=== PATIENT | male | born 1985 | race African-American/Black ===

== ENCOUNTER 2021-03-30 14:38 | Observation (INO) | payer OTHER ==
[2021-03-30] MEDS ORDERED: ASPIRIN 81 MG PO STA (14:48)
[2021-03-30] MEDS ORDERED: NITROGLYCERIN SL TABS 0.4 MG TAB SUBLINGUAL STA (14:48)
[2021-03-30 15:16] LABS: Basophils # (A) 0.1 k/uL (0-0.2); Basophils % (A) 1 %; Eosinophils # (A) 0.2 k/uL (0-0.7); Eosinophils % (A) 4 %; HCT 47.4 % (39.0-53.0); Lymphocytes # (A) 1.9 k/uL (1.0-4.8); Lymphocytes % (A) 42 %; MCH 30.9 pg (25.0-35.0); MCHC 33.7 g/dL (31.0-37.0); MCV 91.8 fL (80.0-100.0); Mean Platelet Volume 8.4; Monocytes # (A) 0.5 k/uL (0-1.0); Monocytes % (A) 10 %; Neutrophils # (A) 1.8 k/uL (1.3-7.7); Neutrophils % (A) 41 %; Platelet Count 173 k/uL (150-450); RBC 5.16 m/uL (4.30-5.90); RDW 12.2 % (11.5-15.5); WBC 4.4 k/uL (3.8-10.6)
[2021-03-30 15:25] LABS: ALT 55 U/L (4-49); AST 46 U/L (17-59); African American GFR (CKD) >90 (>60 ml/min/1.73 sqM); Albumin 4.4 g/dL (3.5-5.0); Alkaline Phosphatase 78 U/L (38-126); Anion Gap 7 mmol/L; Blood Urea Nitrogen 16 mg/dL (9-20); Calcium 9.5 mg/dL (8.4-10.2); Carbon Dioxide 25 mmol/L (22-30); Chloride 105 mmol/L (98-107); Glucose 96 mg/dL (74-99); Magnesium 1.9 mg/dL (1.6-2.3); Non-African American GFR(CKD) >90 (>60 ml/min/1.73 sqM); Potassium 4.5 mmol/L (3.5-5.1); Sodium 137 mmol/L (137-145); Total Bilirubin 0.5 mg/dL (0.2-1.3); Total Protein 7.7 g/dL (6.3-8.2)
--- NOTE | 2021-03-30 15:29 | ED ---
General Adult HPI - General Chief complaint: Chest Pain Stated complaint: Chest pain Time Seen by Provider: 03/30/21 14:41 Source: patient, EMS, RN notes reviewed Mode of arrival: EMS Limitations: no limitations - History of Present Illness Initial comments: Patient is a pleasant 35-year-old male presenting to the emergency department with complaints of chest discomfort. Onset of symptoms was prior to arrival while at rest. Discomfort is sharp without radiation. Patient does have some mild associated dyspnea. No nausea or diaphoresis. No history of similar symptoms previously. 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 Patient does have pacemaker/defibrillator discomfort is moderate to severe. Discomfort has been persistent. Patient comes from [place] where he is they're secondary to history of heroin use. - Related Data Allergies Allergy/AdvReac Type Severity Reaction Status Date / Time No Known Allergies Allergy Verified 03/30/21 14:40 Review of Systems ROS Statement: Those systems with pertinent positive or pertinent negative responses have been documented in the HPI. ROS Other: All systems not noted in ROS Statement are negative. Constitutional: Denies: fever Eyes: Denies: eye pain ENT: Denies: ear pain Respiratory: Denies: cough Cardiovascular: Reports: as per HPI, chest pain Endocrine: Denies: fatigue Gastrointestinal: Denies: abdominal pain Genitourinary: Denies: dysuria Musculoskeletal: Denies: back pain Skin: Denies: rash Neurological: Denies: weakness Past Medical History Past Medical History: Diabetes Mellitus, Hypertension Additional Past Medical History / Comment(s): tetralogy of fallot as History of Any Multi-Drug Resistant Organisms: None Reported Past Surgical History: Cardiac Valve Replacement, Pacemaker Additional Past Surgical History / Comment(s): Pacemaker/defib, 4 heart valve replacements Past Psychological History: No Psychological Hx Reported Smoking Status: Current every day smoker Past Alcohol Use History: None Reported Past Drug Use History: Heroin, Opiates General Exam Limitations: no limitations General appearance: alert, in no apparent distress Head exam: Present: normocephalic Eye exam: Present: normal appearance Neck exam: Present: normal inspection Respiratory exam: Present: normal lung sounds bilaterally Cardiovascular Exam: Present: regular rate, normal rhythm, systolic murmur, diastolic murmur Expanded Peripheral pulses: 2+: Radial (R), Radial (L), Dorsalis Pedis (R), Dorsalis Pedis (L) GI/Abdominal exam: Present: soft. Absent: tenderness Extremities exam: Present: normal inspection. Absent: pedal edema, calf tenderness Neurological exam: Present: alert Psychiatric exam: Present: normal affect, normal mood Skin exam: Present: normal color Course Vital Signs 03/30/21 03/30/21 14:41 15:27 Temperature 98 F Pulse Rate 57 L 55 L Respiratory 18 16 Rate Blood Pressure 138/88 128/81 O2 Sat by Pulse 98 100 Oximetry EKG Findings - EKG Comments: EKG Findings:: Sinus bradycardia with rate of 198. QRS 164. QT 442. QTC 419. Right bundle branch block. Superior axis. Inferior T wave inversion. Medical Decision Making - Medical Decision Making Patient reevaluated and is feeling better. Patient resting comfortably in bed. Patient updated on results and plan. Case discussed with Dr. ag, who will admit covering hospital call. - Lab Data Result diagrams: 03/30/21 14:58 03/30/21 14:58 Lab Results 03/30/21 03/30/21 03/30/21 Range/Units 14:58 14:58 14:58 WBC 4.4 (3.8-10.6) k/uL RBC 5.16 (4.30-5.90) m/uL Hgb 16.0 (13.0-17.5) gm/dL Hct 47.4 (39.0-53.0) % MCV 91.8 (80.0-100.0) fL MCH 30.9 (25.0-35.0) pg MCHC 33.7 (31.0-37.0) g/dL RDW 12.2 (11.5-15.5) % Plt Count 173 (150-450) k/uL MPV 8.4 Neutrophils % 41 % Lymphocytes % 42 % Monocytes % 10 % Eosinophils % 4 % Basophils % 1 % Neutrophils # 1.8 (1.3-7.7) k/uL Lymphocytes # 1.9 (1.0-4.8) k/uL Monocytes # 0.5 (0-1.0) k/uL Eosinophils # 0.2 (0-0.7) k/uL Basophils # 0.1 (0-0.2) k/uL PT 11.4 (9.0-12.0) sec INR 1.1 (<1.2) APTT 28.5 (22.0-30.0) sec D-Dimer 0.45 (<0.60) mg/L FEU Sodium 137 (137-145) mmol/L Potassium 4.5 (3.5-5.1) mmol/L Chloride 105 (98-107) mmol/L Carbon Dioxide 25 (22-30) mmol/L Anion Gap 7 mmol/L BUN 16 (9-20) mg/dL Creatinine 0.75 (0.66-1.25) mg/dL Est GFR (CKD-EPI)AfAm >90 (>60 ml/min/1.73 sqM) Est GFR (CKD-EPI)NonAf >90 (>60 ml/min/1.73 sqM) Glucose 96 (74-99) mg/dL Calcium 9.5 (8.4-10.2) mg/dL Magnesium 1.9 (1.6-2.3) mg/dL Total Bilirubin 0.5 (0.2-1.3) mg/dL AST 46 (17-59) U/L ALT 55 H (4-49) U/L Alkaline Phosphatase 78 (38-126) U/L Troponin I (0.000-0.034) ng/mL Total Protein 7.7 (6.3-8.2) g/dL Albumin 4.4 (3.5-5.0) g/dL 03/30/21 Range/Units 14:58 WBC (3.8-10.6) k/uL RBC (4.30-5.90) m/uL Hgb (13.0-17.5) gm/dL Hct (39.0-53.0) % MCV (80.0-100.0) fL MCH (25.0-35.0) pg MCHC (31.0-37.0) g/dL RDW (11.5-15.5) % Plt Count (150-450) k/uL MPV Neutrophils % % Lymphocytes % % Monocytes % % Eosinophils % % Basophils % % Neutrophils # (1.3-7.7) k/uL Lymphocytes # (1.0-4.8) k/uL Monocytes # (0-1.0) k/uL Eosinophils # (0-0.7) k/uL Basophils # (0-0.2) k/uL PT (9.0-12.0) sec INR (<1.2) APTT (22.0-30.0) sec D-Dimer (<0.60) mg/L FEU Sodium (137-145) mmol/L Potassium (3.5-5.1) mmol/L Chloride (98-107) mmol/L Carbon Dioxide (22-30) mmol/L Anion Gap mmol/L BUN (9-20) mg/dL Creatinine (0.66-1.25) mg/dL Est GFR (CKD-EPI)AfAm (>60 ml/min/1.73 sqM) Est GFR (CKD-EPI)NonAf (>60 ml/min/1.73 sqM) Glucose (74-99) mg/dL Calcium (8.4-10.2) mg/dL Magnesium (1.6-2.3) mg/dL Total Bilirubin (0.2-1.3) mg/dL AST (17-59) U/L ALT (4-49) U/L Alkaline Phosphatase (38-126) U/L Troponin I <0.012 (0.000-0.034) ng/mL Total Protein (6.3-8.2) g/dL Albumin (3.5-5.0) g/dL - Radiology Data Radiology results: image reviewed (Chest x-ray shows chronic changes without acute abnormality.) Disposition Clinical Impression: Chest pain Disposition: ADMITTED IP TO THIS [facility] Is patient prescribed a controlled substance at d/c from ED?: No Referrals: None,Stated [Primary Care Provider] - 1-2 days Decision Time: 16:28
--- NOTE | 2021-03-30 15:44 | XR ---
EXAMINATION TYPE: XR chest 2V DATE OF EXAM: 03/30/2021 COMPARISON: NONE HISTORY: Chest pain TECHNIQUE: 2 view FINDINGS: There is left axillary pacemaker. There are sternal wires. There is apparent right-sided ao rtic arch. Heart size is normal. There is cardiac valve surgery. There is no pleural effusion. There are no hilar masses. Bony thorax is intact. The lungs are clear of infiltrate. IMPRESSION: No active cardiopulmonary disease.
[2021-03-30 16:05] LABS: INR 1.1 (<1.2); Partial Thromboplastin Time 28.5 sec (22.0-30.0); Prothrombin Time 11.4 sec (9.0-12.0)
[2021-03-30] MEDS ORDERED: NITROGLYCERIN SL TABS 0.4 MG TAB SUBLINGUAL PRN (16:29)
[2021-03-30] MEDS ORDERED: ONDANSETRON 4 MG/2 ML VIAL IVP PRN (16:56)
[2021-03-30] MEDS ORDERED: MAG HYDROX/AL HYDROX/SIMETH 30 ML CUP PO PRN (16:56)
[2021-03-30] MEDS ORDERED: NALOXONE 0.4 MG/ML 1 ML VIAL IV PRN (16:56)
[2021-03-30] MEDS ORDERED: ACETAMINOPHEN TAB 325 MG TAB PO PRN (16:56)
[2021-03-30] MEDS ORDERED: LOPERAMIDE 2 MG CAP PO PRN (16:56)
--- NOTE | 2021-03-30 17:00 | P.HPIM ---
History of Present Illness H&P Date: 03/30/21 This is a 35-year-old male with past medical history of tetralogy of fall with status post open heart surgery also defibrillator placement the patient was admitted to the hospital with chest pain substernal that currently resolved Review of systems and systems has been reviewed all negative and positive findings as per history of present illness the patient states that he does have chest pains are not FROM time to time Constitutional: No acute distress, conversant, pleasant Eyes: Anicteric sclerae, moist conjunctiva, no lid-lag PERRLA ENMT: NC/AT Oropharynx clear, no erythema, exudates Neck: Supple, FROM, no masses, or JVD No carotid bruits No thyromegaly Lungs: Clear to auscultation Clear to percussion Normal respiratory effort, no accessory muscle use Cardiovascular: Heart regular in rate and rhythm, No murmurs, gallops, or rubs No peripheral edema Abdominal: Soft Nontender, no guarding, rebound or rigidity Abdomen moving with respiration Normoactive bowel sounds No hepatomegaly, No splenomegaly No palpable mass No abdominal wall hernia noted Skin: Normal temperature, tone, texture, turgor No induration No subcutaneous nodules No rash, lesions No ulcers Extremities: No digital cyanosis No clubbing Pedal pulses intact and symmetrical Radial pulses intact and symmetrical Normal gait and station No calf tenderness Psychiatric:Alert and oriented to person, place and time Appropriate affect Intact judgement Neuro: Muscles Strength 5/5 in all 4 extremities Sensation to light touch grossly present throughout Cranial nerves II-XII grossly intact No focal sensory deficits Assessment and plan Chest pain with typical and atypical features cardiology has been consulted will observe overnight History of tetralogy of followed status post open heart surgery Status post defibrillator placement Observe overnight Past Medical History Past Medical History: Diabetes Mellitus, Hypertension Additional Past Medical History / Comment(s): tetralogy of fallot as History of Any Multi-Drug Resistant Organisms: None Reported Past Surgical History: Cardiac Valve Replacement, Pacemaker Additional Past Surgical History / Comment(s): Pacemaker/defib, 4 heart valve replacements Past Psychological History: No Psychological Hx Reported Smoking Status: Current every day smoker Past Alcohol Use History: None Reported Past Drug Use History: Heroin, Opiates Medications and Allergies Allergies Allergy/AdvReac Type Severity Reaction Status Date / Time No Known Allergies Allergy Verified 03/30/21 14:40 Physical Exam Vitals: Vital Signs Temp Pulse Resp BP Pulse Ox 03/30/21 16:53 54 L 16 149/85 100 03/30/21 15:27 55 L 16 128/81 100 03/30/21 14:41 98 F 57 L 18 138/88 98 Intake and Output 03/30/21 03/30/21 03/30/21 06:59 14:59 22:59 Other: Weight 81.647 kg Results CBC & Chem 7: 03/30/21 14:58 03/30/21 14:58 Labs: Abnormal Lab Results - Last 24 Hours (Table) 03/30/21 Range/Units 14:58 ALT 55 H (4-49) U/L
[2021-03-30 20:28] LABS: Glucose,Whole Blood 135 mg/dL (75-99)
[2021-03-31 08:12] LABS: Glucose,Whole Blood 85 mg/dL (75-99)
[2021-03-31 08:40] VITALS: BP 115/74; PULSE 51; RESP 18; TEMP 97.6
[2021-03-31] MEDS ORDERED: ASPIRIN 325 MG TAB PO SCH (09:00)
--- NOTE | 2021-03-31 11:18 | P.DS ---
Providers Date of admission: 03/30/21 16:29 Expected date of discharge: 03/31/21 Attending physician: Blair Tang MD Consults: 03/30/21 16:29 Consult Physician Urgent Consulting Provider: Raza Carroll Consult Reason/Comments: cp, H/O Tetrology of fallot Do you want consulting provider notified?: Yes Primary care physician: Stated None Hospital Course: 35-year-old male admitted to the hospital with chest pain the patient does have a history of tetralogy followed status post open heart surgery admitted to the hospital chest pain chest pain resolved patient was cleared from cardiology To be discharged Constitutional: No acute distress, conversant, pleasant Eyes: Anicteric sclerae, moist conjunctiva, no lid-lag PERRLA ENMT: NC/AT Oropharynx clear, no erythema, exudates Neck: Supple, FROM, no masses, or JVD No carotid bruits No thyromegaly Lungs: Clear to auscultation Clear to percussion Normal respiratory effort, no accessory muscle use Cardiovascular: Heart regular in rate and rhythm, No murmurs, gallops, or rubs No peripheral edema Abdominal: Soft Nontender, no guarding, rebound or rigidity Abdomen moving with respiration Normoactive bowel sounds No hepatomegaly, No splenomegaly No palpable mass No abdominal wall hernia noted Skin: Normal temperature, tone, texture, turgor No induration No subcutaneous nodules No rash, lesions No ulcers Extremities: No digital cyanosis No clubbing Pedal pulses intact and symmetrical Radial pulses intact and symmetrical Normal gait and station No calf tenderness Psychiatric:Alert and oriented to person, place and time Appropriate affect Intact judgement Neuro: Muscles Strength 5/5 in all 4 extremities Sensation to light touch grossly present throughout Cranial nerves II-XII grossly intact No focal sensory deficits Discharge diagnosis chest pain resolved follow-up with cardiology and primary care physician No evidence for acute coronary syndrome or PE Patient Condition at Discharge: Stable Plan - Discharge Summary Discharge Rx Participant: No New Discharge Prescriptions: New Aspirin 325 mg PO DAILY 30 Days #30 tab Continue Chlorpheniramine Maleate [Chlor-Trimeton] 4 mg PO Q4H PRN PRN Reason: Allergy Symptoms ondansetron HCL [Zofran] 8 mg PO Q6H PRN PRN Reason: Nausea Loperamide HCl [Imodium A-D] 4 mg PO DIRECTED PRN PRN Reason: Loose Stool Calc/M,Ag/Zinc/Vitamin D 1 tab PO TID cloNIDine HCL [Catapres] 0.1 mg PO Q4H PRN PRN Reason: Blood Pressure - High Ibuprofen [Motrin Ib] 600 mg PO Q8H PRN PRN Reason: Pain Metoprolol Tartrate [Lopressor] 50 mg PO BID@0600,1800 Hyoscyamine Sulfate [Levsin] 0.125 mg PO QID PRN PRN Reason: CRAMPS Discharge Medication List Calc/M,Ag/Zinc/Vitamin D 1 tab PO TID 03/30/21 [History] Chlorpheniramine Maleate [Chlor-Trimeton] 4 mg PO Q4H PRN 03/30/21 [History] Hyoscyamine Sulfate [Levsin] 0.125 mg PO QID PRN 03/30/21 [History] Ibuprofen [Motrin Ib] 600 mg PO Q8H PRN 03/30/21 [History] Loperamide HCl [Imodium A-D] 4 mg PO DIRECTED PRN 03/30/21 [History] Metoprolol Tartrate [Lopressor] 50 mg PO BID@0600,1800 03/30/21 [History] cloNIDine HCL [Catapres] 0.1 mg PO Q4H PRN 03/30/21 [History] ondansetron HCL [Zofran] 8 mg PO Q6H PRN 03/30/21 [History] Aspirin 325 mg PO DAILY 30 Days #30 tab 03/31/21 [Rx] Follow up Appointment(s)/Referral(s): None,Stated [Primary Care Provider] - 1-2 days Discharge Disposition: HOME SELF-CARE
--- NOTE | 2021-03-31 11:28 | P.CRDCN ---
History of Present Illness Consult date: 03/31/21 Chief complaint: Chest pain History of present illness: The patient is a 35-year-old gentleman with a past medical history significant for history of tetralogy of Fallout and status post multiple surgeries as well as history of ICD placement as well as multiple comorbid conditions, the patient follows regularly at the [facility] at the adult congenital heart disease, was admitted to the hospital with a chest discomfort. The patient described her discomfort as sharp in the middle of the chest without any radiation and without any associated symptoms. Her shortness of breath and no dizziness or lightheadedness and no presyncope or syncope. Discomfort lasts only for a few seconds. Currently he is chest pain-free. He underwent a blood work including cardiac enzymes came in to be unremarkable and EKG showing sinus rhythm with RBBB. His physical examination is consistent with systolic and diastolic murmur at the right upper sternal border. The patient was seen and evaluated this morning and he is chest pain-free. He would like to go home and follow with his hunter trapper at the [facility]. He stated that he is scheduled to undergo a heart catheterization over there. We'll get the patient up and around and she is asymptomatic she definitely can be discharged home to see his hunter trapper where he follows at an adult congenital heart disease program at the [facility]. Past Medical History Past Medical History: Diabetes Mellitus, Hypertension Additional Past Medical History / Comment(s): tetralogy of fallot as infant History of Any Multi-Drug Resistant Organisms: None Reported Past Surgical History: Cardiac Valve Replacement, Pacemaker Additional Past Surgical History / Comment(s): Pacemaker/defib, 4 heart valve replacements Type of Cardiac Device: Permanent Pacemaker Device Placement Date:: 2019 Past Psychological History: No Psychological Hx Reported Smoking Status: Current every day smoker Past Alcohol Use History: None Reported Past Drug Use History: Heroin, Opiates Medications and Allergies Home Medications Medication Instructions Recorded Confirmed Type Calc/M,Ag/Zinc/Vitamin D 1 tab PO TID 03/30/21 03/30/21 History Chlorpheniramine Maleate 4 mg PO Q4H PRN 03/30/21 03/30/21 History [Chlor-Trimeton] Hyoscyamine Sulfate [Levsin] 0.125 mg PO QID PRN 03/30/21 03/30/21 History Ibuprofen [Motrin Ib] 600 mg PO Q8H PRN 03/30/21 03/30/21 History Loperamide HCl [Imodium A-D] 4 mg PO DIRECTED PRN 03/30/21 03/30/21 History Metoprolol Tartrate [Lopressor] 50 mg PO BID@0600,1800 03/30/21 03/30/21 History cloNIDine HCL [Catapres] 0.1 mg PO Q4H PRN 03/30/21 03/30/21 History ondansetron HCL [Zofran] 8 mg PO Q6H PRN 03/30/21 03/30/21 History Aspirin 325 mg PO DAILY 30 Days #30 tab 03/31/21 Rx Allergies Allergy/AdvReac Type Severity Reaction Status Date / Time No Known Allergies Allergy Verified 03/30/21 18:09 Physical Exam Vitals: Vital Signs Temp Pulse Pulse Resp BP BP BP 03/31/21 07:00 97.6 F 51 L 18 115/74 03/31/21 02:20 98.1 F 52 L 20 139/84 03/30/21 19:19 99.0 F 51 L 22 124/66 03/30/21 18:13 55 L 16 110/70 03/30/21 16:53 54 L 16 149/85 03/30/21 15:27 55 L 16 128/81 03/30/21 14:41 98 F 57 L 18 138/88 Pulse Ox 03/31/21 07:00 99 03/31/21 02:20 100 03/30/21 19:19 100 03/30/21 18:13 100 03/30/21 16:53 100 03/30/21 15:27 100 03/30/21 14:41 98 Intake and Output 03/30/21 03/31/21 03/31/21 22:59 06:59 14:59 Intake Total 120 Balance 120 Intake: Oral 120 Other: Voiding Method Toilet Toilet # Voids 1 1 Weight 81.647 kg - Constitutional General appearance: no acute distress - Respiratory Respiratory: bilateral: CTA - Cardiovascular Rhythm: regular Heart sounds: normal: S1, S2 Abnormal Heart Sounds: systolic murmur, diastolic murmur Results 03/30/21 14:58 03/30/21 14:58 Cardiac Enzymes 03/30/21 03/30/21 03/30/21 Range/Units 14:58 14:58 18:25 AST 46 (17-59) U/L Troponin I <0.012 <0.012 (0.000-0.034) ng/mL 03/30/21 Range/Units 21:00 AST (17-59) U/L Troponin I <0.012 (0.000-0.034) ng/mL Coagulation 03/30/21 Range/Units 14:58 PT 11.4 (9.0-12.0) sec APTT 28.5 (22.0-30.0) sec CBC 03/30/21 Range/Units 14:58 WBC 4.4 (3.8-10.6) k/uL RBC 5.16 (4.30-5.90) m/uL Hgb 16.0 (13.0-17.5) gm/dL Hct 47.4 (39.0-53.0) % Plt Count 173 (150-450) k/uL Comprehensive Metabolic Panel 03/30/21 Range/Units 14:58 Sodium 137 (137-145) mmol/L Potassium 4.5 (3.5-5.1) mmol/L Chloride 105 (98-107) mmol/L Carbon Dioxide 25 (22-30) mmol/L BUN 16 (9-20) mg/dL Creatinine 0.75 (0.66-1.25) mg/dL Glucose 96 (74-99) mg/dL Calcium 9.5 (8.4-10.2) mg/dL AST 46 (17-59) U/L ALT 55 H (4-49) U/L Alkaline Phosphatase 78 (38-126) U/L Total Protein 7.7 (6.3-8.2) g/dL Albumin 4.4 (3.5-5.0) g/dL Current Medications Generic Name Dose Route Start Last Admin Trade Name Freq PRN Reason Stop Dose Admin Acetaminophen 650 mg 03/30/21 16:56 Acetaminophen Tab 325 Mg Tab PO Q6HR PRN Mild Pain or Fever > 100.5 Al Hydroxide/Mg Hydroxide 15 ml 03/30/21 16:56 Mag Hydrox/Al Hydrox/Simeth 30 Ml Cup PO Q6HR PRN Indigestion Aspirin 325 mg 03/31/21 09:00 03/31/21 08:51 Aspirin 325 Mg Tab PO 325 mg DAILY CANELO Administration Loperamide HCl 2 mg 03/30/21 16:56 Loperamide 2 Mg Cap PO Q2HR PRN Loose Stool Naloxone HCl 0.2 mg 03/30/21 16:56 Naloxone 0.4 Mg/Ml 1 Ml Vial IV Q2M PRN Opioid Reversal Nitroglycerin 0.4 mg 03/30/21 16:29 Nitroglycerin Sl Tabs 0.4 Mg Tab SUBLINGUAL Q5M PRN Chest Pain Ondansetron HCl 4 mg 03/30/21 16:56 Ondansetron 4 Mg/2 Ml Vial IVP Q8HR PRN Nausea And Vomiting Sodium Chloride 10 ml 03/30/21 21:00 03/31/21 08:51 Sodium Chloride 0.9% Flush 10 Ml Syringe IV 10 ml BID CANELO Administration Intake and Output 03/30/21 03/31/21 03/31/21 22:59 06:59 14:59 Intake Total 120 Balance 120 Intake: Oral 120 Other: Voiding Method Toilet Toilet # Voids 1 1 Weight 81.647 kg 03/30/21 14:58 03/30/21 14:58 Assessment and Plan Assessment: Assessment #1 atypical chest discomfort which has resolved #2 TOF and s/p surgery Plan The pt was r/o for ACS He needs to follow with [facility] with the adult congenital heart dx program
[2021-03-31 11:30] LABS: ALT 62 U/L (10-49); AST 31 U/L (14-35); Albumin 4.4 g/dL (3.8-4.9); Albumin/Globulin Ratio 1.85 (1.60-3.17); Alkaline Phosphatase 90 U/L (41-126); BUN/Creat Ratio 18.31 Ratio (12.00-20.00); Blood Urea Nitrogen 13.2 mg/dL (9.0-27.0); Calcium 9.4 mg/dL (8.7-10.3); Carbon Dioxide 24.8 mmol/L (20.0-27.5); Chloride 101 mmol/L (96-109); Chol/HDL Ratio 2.45 Ratio; Globulin 2.4 g/dL (1.6-3.3); Glucose 83 mg/dL (70-110); LDL Cholesterol,Calculated 56.5 mg/dL (0.0-131.0); Non-African American GFR(CKD) 119.1 (60.0-200.0); Potassium 5.1 mmol/L (3.5-5.5); Sodium 136 mmol/L (135-145); Total Protein 6.8 g/dL (6.2-8.2); VLDL Calculation 14.04 mg/dL (5.00-40.00)
[2021-03-31 11:44] LABS: Basophils # (A) 0.03 X 10*3/uL (0.00-0.10); Basophils % (A) 0.8 %; Eosinophils # (A) 0.16 X 10*3/uL (0.04-0.35); Eosinophils % (A) 4.1 %; HCT 45.4 % (39.6-50.0); HGB 14.9 g/dL (13.0-17.0); Lymphocytes # (A) 1.95 X 10*3/uL (0.90-5.00); Lymphocytes % (A) 50.4 %; MCH 29.6 pg (27.0-32.0); MCHC 32.8 g/dL (32.0-37.0); MCV 90.1 fL (80.0-97.0); Mean Platelet Volume 11.3 fL (9.5-12.2); Monocytes # (A) 0.66 X 10*3/uL (0.20-1.00); Monocytes % (A) 17.1 %; Neutrophils # (A) 1.06 X 10*3/uL (1.80-7.70); Neutrophils % (A) 27.3 %; Platelet Count 177 X 10*3/uL (140-440); RBC 5.04 X 10*6/uL (4.40-5.60); RDW 12.3 % (11.5-14.5); WBC 3.87 X 10*3/uL (4.50-10.00)
== END 2021-03-31 12:25 | disposition home or self-care (01) ==
LOC: EC 14:38 → 6NMEDSUR 16:29
PROVIDERS: ADMIT Internal Medicine; ATTEND Internal Medicine
DX: R07.89 Other chest pain (principal); Q21.3 Tetralogy of Fallot; R06.02 Shortness of breath; E11.9 Type 2 diabetes mellitus without complications; F11.90 Opioid use, unspecified, uncomplicated; I10 Essential (primary) hypertension; Z95.2 Presence of prosthetic heart valve; Z95.810 Presence of automatic (implantable) cardiac defibrillator; F17.200 Nicotine dependence, unspecified, uncomplicated; I45.10 Unspecified right bundle-branch block; Z79.82 Long term (current) use of aspirin; Z79.899 Other long term (current) drug therapy
CPT/HCPCS: 99285; 36415; 93005; 85379; 80061; 80053 ×2; 83735; 84484; 85025 ×2; 85610; 85730; 87635; 71046; G0378 ×2